=== PATIENT | male | born 1975 | race Caucasian/White ===

== ENCOUNTER 2017-08-06 12:43 | Emergency (ER) | payer BC ==
[2017-08-06] MEDS ORDERED: IBUPROFEN 200 MG TAB PO ONE (13:42)
[2017-08-06] MEDS ORDERED: HYDROCODONE/APAP 10/325 TAB ONE (13:42)
[2017-08-06] MEDS ORDERED: IBUPROFEN 400 MG TAB ONE (13:42)
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
--- NOTE | 2017-08-06 15:20 | RAD REPORT ---
EXAM DESCRIPTION: RAD - Wrist Left 3 View - 08/06/2017 3:00 pm CLINICAL HISTORY: Left wrist pain status post injury FINDINGS: An avulsion fracture involves the ulnar styloid process. No dislocation is seen A vague bony/calcific density lies along the dorsal aspect of the wrist which is equivocal for an chi p avulsion fracture of the triquetrum
--- NOTE | 2017-08-06 15:23 | RAD REPORT ---
EXAM DESCRIPTION: RAD - Elbow Left 3 View - 08/06/2017 2:59 pm CLINICAL HISTORY: Left elbow pain status post trauma FINDINGS: A subtle posterior humeral fat pad is seen. No acute fracture or dislocation is seen. In the setting of trauma a posterior humeral fat pad often indicates a hemarthrosis secondary to an o ccult fracture. Statistically the radial head is most likely
--- NOTE | 2017-08-06 15:24 | RAD REPORT ---
EXAM DESCRIPTION: RAD - Forearm Left - 08/06/2017 2:59 pm CLINICAL HISTORY: Left forearm pain status post injury FINDINGS: Sideplate and screws affix old fractures involving the mid ulna and radius. Please refer to the wrist and elbow x-rays for additional findings
== END 2017-08-06 16:49 | disposition home or self-care (01) ==
LOC: ER 12:43
DX: S52.612A Displaced fracture of left ulna styloid process, initial encounter for closed fracture (principal); V80.018A Animal-rider injured by fall from or being thrown from other animal in noncollision accident, initial encounter; Y93.89 Activity, other specified; Y92.9 Unspecified place or not applicable; Z88.0 Allergy status to penicillin; I10 Essential (primary) hypertension
CPT/HCPCS: 99284

== ENCOUNTER 2018-09-12 14:37 | Emergency (ER) | payer BC ==
--- NOTE | 2018-09-12 15:47 | RAD REPORT ---
EXAM DESCRIPTION: RAD - Lumbar Spine 3 Views - 09/12/2018 3:35 pm CLINICAL HISTORY: Back pain FINDINGS: The alignment of the lumbar spine is satisfactory. No fracture or dislocation is seen. Mild spondylosis involves the lumbar spine
[2018-09-12] MEDS ORDERED: KETOROLAC 30 MG/ML INJ ONE (15:55)
[2018-09-12] MEDS ORDERED: DIAZEPAM 5 MG TABLET ONE (15:55)
--- NOTE | 2018-09-12 16:21 | RAD REPORT ---
EXAM DESCRIPTION: CTSpine Lumbar Wo Con09/12/2018 4:04 pm CLINICAL HISTORY: Back pain and radiculopathy COMPARISON: None TECHNIQUE: Computed axial tomography lumbar spine was obtained with coronal and sagittal reconstruct ion. All CT scans are performed using dose optimization technique as appropriate and may include automated exposure control or mA/KV adjustment according to patient size. 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 Otherwise no fractu re or dislocation is seen Mild spondylosis L3-4 Disc bulge which is partially calcified L4-5 results in mild narrowing of the thecal sac. Facet hyper trophy is present. Mild narrowing of the neural foramina Disc bulge L5-S1 which is partially calcified. Significant narrowing of the thecal sac is not noted. 

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
== END 2018-09-12 17:18 | disposition home or self-care (01) ==
LOC: ER 14:37
DX: M62.830 Muscle spasm of back (principal); Z88.2 Allergy status to sulfonamides
CPT/HCPCS: 72100; 72131; 96372; 99284